=== PATIENT | male | born 2000 | race Two or more races ===

== ENCOUNTER 2021-11-29 17:21 | Emergency (ER) | payer BC, OTHER ==
[~2021-11-29] VITALS: Ht 177.8 cm; Wt 117.9 kg
[2021-11-29 17:25] VITALS: BP 146/91
== END 2021-11-29 19:02 | disposition left against medical advice (07) ==
LOC: ER 17:21
DX: U07.1 COVID-19 (principal); Z53.21 Procedure and treatment not carried out due to patient leaving prior to being seen by health care provider
CPT/HCPCS: 36415; 87426